=== PATIENT | female | born 1960 | race Caucasian/White ===

== ENCOUNTER → 2020-01-07 16:30 | Outpatient (CLI) | payer BC, SELFPAY ==
--- NOTE | ~2020-01-07 | MM_ITS ---
EXAMINATION: MM screening tarsha BI w mckenna HISTORY: Screening mammogram TECHNIQUE: Craniocaudal and mediolateral oblique 3-D tomosynthesis images were obtained and synthetic 2-D images were generated. CAD analysis was submitted and interpreted. COMPARISON: 01/16/2017, 08/09/2015 bilateral digital screening mammogram examinations BREAST PARENCHYMAL COMPOSITION: There are scattered areas of fibroglandular density. FINDINGS: There is no evidence of suspicious mass, calcification, or architectural distortion to sugg est malignancy in either breast. There has been no suspicious interval change. IMPRESSION: 1. No mammographic evidence of malignancy. 2. Recommend routine screening mammography in one year. BI-RADS Category 1: Negative Reviewed, dictated and finalized at location A.
== END ==
PROVIDERS: Visit Provider Nurse Practitioner Obstetrics & Gynecology
DX: Z12.31 Encounter for screening mammogram for malignant neoplasm of breast (principal)
CPT/HCPCS: 77063; 77067

== ENCOUNTER → 2020-06-24 15:36 | Outpatient (CLI) | payer BC, SELFPAY ==
--- NOTE | ~2020-06-24 | US_ITS ---
US renal BI 06/24/2020 16:15 Procedure: Realtime transabdominal ultrasound of the kidneys and bladder. Indication: Hematuria Comparison: Ultrasound dated 11/30/2015 Findings: Renal echotexture is normal bilaterally without hydronephrosis, contour deforming mass or r enal calculus. There is a 2.8 cm right renal cyst. The right kidney measures 11.3 cm and left kidney measures 9 cm. Bladder within normal limits. Impression: 1: Right renal cyst measuring 2.8 cm. Reviewed, dictated and finalized at location A. [employer]ING Impression: 1: Right renal cyst measuring 2.8 cm.
== END ==
PROVIDERS: Visit Provider Family Medicine
DX: R31.9 Hematuria, unspecified (principal); N28.1 Cyst of kidney, acquired
CPT/HCPCS: 76775

== ENCOUNTER 2021-04-26 01:10 | Day surgery (SDC) | payer BC, SELFPAY ==
[2021-04-10 15:16] VITALS: BMI 32.0
--- NOTE | 2021-04-25 10:49 | P.HP_ITS ---
History of Present Illness History of Present Illness Consent: Risks, benefits, and alternatives have been discussed and questions answered. Patient agrees to proceed with procedure. Chief complaint: hx of colon polyps Narrative: Reyna Zaragoza is a 61 year old female Was referred for colon cancer screening. She had a polyp removed over 4 years ago Review of Systems Review of Systems: All systems reviewed & are unremarkable except as noted in HPI and below PMFSH Past Medical History Medical History Anxiety state, unspecified Basal cell carcinoma of skin Benign neoplasm of colon, unspecified Bile salt-induced diarrhea Hematuria HTN (hypertension), benign Mitral valve insufficiency Obesity (BMI 30.0-34.9) TEODORO (obstructive sleep apnea) CPAP Sleep apnea Tinnitus, bilateral Surgical History Surgical History (Reviewed 08/03/20 @ 10:15 by Albertina Christina [facility] [address]) H/O nasal polypectomy History of tubal ligation Hx of cholecystectomy (~04/04/16) Family History Family History Grandparent Diabetes mellitus Hypertension Family history of cardiovascular disease Family history of kidney disease Family history of Alzheimer's disease Father Family history of glaucoma Mother Family history of glaucoma Social History Social History Smoking status: Never smoker Alcohol intake: current Drinks per week: 1 Alcohol use details: wine Substance use: never Substance use type: does not use Living arrangements: with family Spiritual care concerns: No Meds Home Medications and Allergies Home Medications Medication Instructions Recorded Confirmed Type nebivolol 2.5 mg tablet 2.5 mg PO DAILY #90 tablet 02/13/21 04/26/21 Rx montelukast 10 mg PO DAILY 04/10/21 04/26/21 History Allergies Allergy/AdvReac Type Severity Reaction Status Date / Time doxycycline Allergy Mild Nausea and Verified 04/26/21 07:55 Vomiting erythromycin base Allergy Mild Nausea and Verified 04/26/21 07:55 Vomiting Exam Const: General: alert Orientation/consciousness: patient oriented x3 Resp: Auscultation: clear to auscultation bilaterally Cardio: Rhythm: regular rhythm GI: GI Palp: Yes Soft to palpation and No Tenderness to palpation present (GI) Neuro: General: patient oriented x3 Assessment and Plan Assessment and plan (1) Colon cancer screening: Code(s): Z12.11 - Encounter for screening for malignant neoplasm of colon Status: Acute Assessment and Plan: Colonoscopy with possible biopsy or polypectomy or cautery or injection of substances.
[2021-04-26 07:48] VITALS: BP 145/85; PULSE 93; RESP 18; TEMP 36.3; O2SAT 99; BMI 32.8
[2021-04-26] MEDS: LACTATED RINGERS 1,000 ML 150 ML IV CONT (08:05)
--- NOTE | 2021-04-26 08:49 | WPDANESEPPF ---
Anes - Initial Pre Proc Eval Procedure: Operation Date: 04/26/21 09:00 Proposed Procedures p Screening Colonoscopy - Shane Coffey MD Date/Time: 04/26/21 08:49 Surgeon: Shane Coffey MD Pre Op Diagnosis: hx of colon polyps Patient Data Age: 61 Gender: F Height: 1.57 m Weight: 81.3 kg Last Vital Signs Temp 97.3 F L 04/26/21 07:48 Pulse 93 04/26/21 07:48 Resp 18 04/26/21 07:48 BP 145/85 H 04/26/21 07:48 Pulse Ox 99 04/26/21 07:48 Allergies Allergy/AdvReac Type Severity Reaction Status Date / Time doxycycline Allergy Mild Nausea and Verified 04/26/21 07:55 Vomiting erythromycin base Allergy Mild Nausea and Verified 04/26/21 07:55 Vomiting Home Medications Medication Instructions Recorded Confirmed Type nebivolol 2.5 mg tablet 2.5 mg PO DAILY #90 tablet 02/13/21 04/26/21 Rx montelukast 10 mg PO DAILY 04/10/21 04/26/21 History Patient hx anesthesia problems: none Family hx anesthesia problems: none Results Review: All pre-operative results and documents have been reviewed as part of the pre-operative evaluation. [facility] Past Medical History Medical History Anxiety state, unspecified Basal cell carcinoma of skin Benign neoplasm of colon, unspecified Bile salt-induced diarrhea Hematuria HTN (hypertension), benign Mitral valve insufficiency Obesity (BMI 30.0-34.9) TEODORO (obstructive sleep apnea) CPAP Sleep apnea Tinnitus, bilateral Surgical History Surgical History H/O nasal polypectomy History of tubal ligation Hx of cholecystectomy (~04/04/16) Family History Family History Grandparent Diabetes mellitus Hypertension Family history of cardiovascular disease Family history of kidney disease Family history of Alzheimer's disease Father Family history of glaucoma Mother Family history of glaucoma Social History Social History Smoking status: Never smoker Alcohol intake: current Drinks per week: 1 Alcohol use details: wine Substance use: never Substance use type: does not use Living arrangements: with family Spiritual care concerns: No Anes - Eval Final PreProcedure Day of Procedure 04/26/21 08:49 Patient weight: obese Heart: regular rate and rhythm Lungs: clear to auscultation Airway: Mallampati scale class II Neurological: alert and oriented Last oral intake: >/= 8 hours ASA classification: III Emergent: no Anesthetic plan: proceed Anesthesia type and monitoring: general GIVS and standard monitoring Results Review: All pre-operative results and documents have been reviewed as part of the pre-operative evaluation. Informed Consent: The patient's anesthetic plan and its attendant risks and benefits were discussed with the patient/family/POA. Questions were solicited and answers provided to the satisfaction of the patient/family/POA.
[2021-04-26 09:16] VITALS: BP 100/57; PULSE 73; RESP 16; O2SAT 97
[2021-04-26 09:26] VITALS: BP 123/66; PULSE 66; RESP 17; O2SAT 100
[2021-04-26 09:36] VITALS: BP 119/71; PULSE 62; RESP 15; O2SAT 100
== END 2021-04-26 09:38 | disposition home or self-care (01) ==
PROVIDERS: PCP Family Medicine; Visit Provider Internal Medicine Gastroenterology
PROC: 0DJD8ZZ Inspection of Lower Intestinal Tract, Via Natural or Artificial Opening Endoscopic (ICD-10-PCS; CPT 45378; principal; 2021-04-26 09:00)
DX: Z12.11 Encounter for screening for malignant neoplasm of colon (principal); K57.30 Diverticulosis of large intestine without perforation or abscess without bleeding; D12.3 Benign neoplasm of transverse colon; I10 Essential (primary) hypertension; I34.0 Nonrheumatic mitral (valve) insufficiency; G47.33 Obstructive sleep apnea (adult) (pediatric); E66.9 Obesity, unspecified; Z68.32 Body mass index [BMI] 32.0-32.9, adult
CPT/HCPCS: 45385; 88305; J2704; J7120

== ENCOUNTER → 2021-04-27 11:53 | Outpatient (CLI) | payer BC, SELFPAY ==
--- NOTE | ~2021-04-27 | DEXA_ITS ---
Bone Density Report Name: KIKE FUNK Age: 61 Sex: Female Ethnicity: White Date of : 1960 Indication: osteopenia; parental hip fracture; prior fracture; postmenopausal Referring Provider: Mila Palma Study: Bone densitometry was performed. Exam Date: April 27, 2021 Accession number: [id number] Bone Density: Region BMD T-score Z-score Classification AP Spine (L1-L4) 0.778 -2.4 -1.0 Osteopenia Femoral Neck (Left) 0.590 -2.3 -1.0 Osteopenia Total Hip (Left) 0.862 -0.7 0.3 Normal Femoral Neck (Right) 0.672 -1.6 -0.3 Osteopenia Total Hip (Right) 0.884 -0.5 0.5 Normal Total Hip Mean 0.873 -0.6 0.4 Normal World Health Organization criteria for BMD impression classify patients as: Normal (T-score at or above -1.0), Osteopenia (T-score between -1.0 and -2.5), or Osteoporosis (T-score at or below -2.5). 10-year Fracture Risk(1): Major Osteoporotic Fracture 30% Hip Fracture 2.7% Reported Risk Factors: [place] (), Neck BMD=0.590, BMI=33.3, previous fracture, parental fracture (1) FRAX(R) Version 3.08. Fracture probability calculated for an untreated patient. Fracture probability may be lower if the patient has received treatment. Previous Exams: Region Exam Age BMD T-score BMD Change BMD Change Date g/cm2 vs Baseline vs Previous AP Spine(L1-L4) 04/27/2021 61 0.778 -2.4 -0.049 -0.049 07/07/2014 54 0.827 -2.0 Total Hip(Left) 04/27/2021 61 0.862 -0.7 -0.084 -0.084 07/07/2014 54 0.946 0.0 Total Hip(Right) 04/27/2021 61 0.884 -0.5 -0.020 -0.020 07/07/2014 54 0.904 -0.3 *Denotes significance at 95% confidence level, LSC for AP Spine = 0.022 g/cm2, LSC for Total Hip = 0.027 g/cm2 Clinical Information Provided by Patient: Has had a low trauma fracture Parent has had a hip fracture Has used the following medications: Vitamin D, Calcium, MTV Patient maximum height was 62.5 Menopause Age: 53 No regular weight bearing exercise Drinks caffeinated beverages Onset of menses at age 17 Number of children 2 Impression: The patient has low bone mass, based on the Total Spine T-score. The patient has an estimated ten-year risk of hip fracture of 2.7% and an estimated ten-year risk of major fracture of 30%, based on the WHO FRAX algorithm. The patient has risk factors, including: parental hip fracture, previous fracture. No significant bone loss was observed.
--- NOTE | ~2021-04-27 | MM_ITS ---
EXAMINATION: MM screening tarsha BI w mckenna HISTORY: Screening TECHNIQUE: Craniocaudal and mediolateral oblique 3-D tomosynthesis images were obtained and synthetic 2-D images were generated. CAD analysis was submitted and interpreted. COMPARISON: Comparison to multiple prior studies sequentially, with oldest reviewed study dated 04/19. BREAST PARENCHYMAL COMPOSITION: There are scattered areas of fibroglandular density. FINDINGS: There is no evidence of suspicious mass, calcification, or architectural distortion to sugg est malignancy in either breast. There has been no suspicious interval change. IMPRESSION: 1. No mammographic evidence of malignancy. 2. Recommend routine screening mammography in one year. BI-RADS Category 1: Negative Reviewed, dictated and finalized at location A. 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
== END ==
PROVIDERS: PCP Family Medicine; Visit Provider Obstetrics & Gynecology
DX: Z12.31 Encounter for screening mammogram for malignant neoplasm of breast (principal); Z78.0 Asymptomatic menopausal state; M85.88 Other specified disorders of bone density and structure, other site; M85.852 Other specified disorders of bone density and structure, left thigh; M85.851 Other specified disorders of bone density and structure, right thigh
CPT/HCPCS: 77063; 77067; 77080

== ENCOUNTER 2022-01-30 16:28 | Outpatient (CLI) | payer OTHER, SELFPAY ==
--- NOTE | 2022-01-30 | ECG_ITS ---
Measurements Intervals [place] Rate: 55 P: 50 WA: 150 QRS: 24 QRSD: 96 T: 12 QT: 421 QTc: 406 Interpretive Statements SINUS BRADYCARDIA BASELINE WANDER- I, II, AVR, AVL, AVF NORMAL ECG NO PREVIOUS ECG AVAILABLE FOR COMPARISON Electronically Signed On 01-30-2022 16:47:34 CDT by Steve Lang D.O.
== END 2022-01-30 16:29 | disposition home or self-care (01) ==
LOC: ANHCARD 16:31
PROVIDERS: PCP Family Medicine; Visit Provider Obstetrics & Gynecology
DX: E66.9 Obesity, unspecified (principal)
CPT/HCPCS: 93005

== ENCOUNTER → 2022-04-30 10:33 | Outpatient (CLI) | payer OTHER, SELFPAY ==
--- NOTE | ~2022-04-30 | MM_ITS ---
EXAMINATION: MM screening tarsha BI w mckenna HISTORY: Screening TECHNIQUE: Craniocaudal and mediolateral oblique 3-D tomosynthesis images were obtained and synthetic 2-D images were generated. CAD analysis was submitted and interpreted. COMPARISON: Comparison to multiple prior studies sequentially, with oldest reviewed study dated 04/19. BREAST PARENCHYMAL COMPOSITION: There are scattered areas of fibroglandular density. FINDINGS: There is no evidence of suspicious mass, calcification, or architectural distortion to sugg est malignancy in either breast. There has been no suspicious interval change. IMPRESSION: 1. No mammographic evidence of malignancy. 2. Recommend routine screening mammography in one year. BI-RADS Category 1: Negative Reviewed, dictated and finalized at location B. 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
== END ==
PROVIDERS: PCP Family Medicine; Visit Provider Obstetrics & Gynecology
DX: Z12.31 Encounter for screening mammogram for malignant neoplasm of breast (principal)
CPT/HCPCS: 77063; 77067